=== PATIENT | male | born 1965 | race Caucasian/White ===

== ENCOUNTER 2022-08-04 10:25 | Outpatient (CLI) | payer MEDICARE, SELFPAY ==
--- NOTE | 2022-08-04 | EST_ITS ---
Patient Info Name: Vignesh Boyd Age: 56 years : 1965 Gender: Male Ht: 65 in Wt: 258 lbs BSA: 2.38 m2 Exam Date: 08/04/2022 11:50 AM Exam Location: [facility] Stress Patient Status: Outpatient Admit Date: 08/04/2022 Staff Ordering Physician: Glynn Ruiz MD Attending Provider: Glynn Ruiz MD Exercise Technologist: Aayush Rodney RDCS, RT Exercise Physician: Alton Forbes DO Exam Type: CA stress shilpa w NM Study Info A regadenoson stress test was performed. Summary 1. 1. Negative lexiscan stress test for ischemic ST changes by ECG criteria. 2. 2. Stable hemodynamics throughout the test. 3. 3. Nuclear scan to follow and will be reported separately. Please correlate with it. 4. 4. Patient informed of the above results. Protocol: Lexiscan Stress ECG Details Stage: REST Duration (min): 1 min : 18 sec HR (bpm): 80 SBP (mmHg): 140 DBP (mmHg): 69 Stage: REST Duration (min): 9 min : 40 sec HR (bpm): 78 SBP (mmHg): 140 DBP (mmHg): 69 Stage: STAGE 1 Duration (min): 0 min : 59 sec HR (bpm): 99 SBP (mmHg): 130 DBP (mmHg): 51 Stage: RECOVERY Duration (min): 1 min : 0 sec HR (bpm): 100 SBP (mmHg): 130 DBP (mmHg): 51 Stage: RECOVERY Duration (min): 2 min : 0 sec HR (bpm): 94 SBP (mmHg): 130 DBP (mmHg): 51 Stage: RECOVERY Duration (min): 3 min : 0 sec HR (bpm): 94 SBP (mmHg): 137 DBP (mmHg): 53 Stage: RECOVERY Duration (min): 3 min : 18 sec HR (bpm): 94 SBP (mmHg): 137 DBP (mmHg): 53 Rest HR: 78 bpm Peak HR: 100 bpm Rest Sys BP: 140 mmHg Peak Sys BP: 137 mmHg Max Pred HR: 163 bpm % Max Pred HR: 61 % Target HR: 139 bpm Max RPP: 13,700 bpm*mmHg Termination Reason: Completed protocol Cardiac Symptoms: Shortness of breath Total Time: 1 min : 0 sec Rest Friend BP: 69 mmHg Peak Friend BP: 53 mmHg Total Dose: 0.4 mg Resting ECG Sinus rhythm, delayed precordial R/S transition. Stress ECG No ST changes. Arrhythmias None. Report Signatures
--- NOTE | ~2022-08-04 | XR_ITS ---
EXAMINATION: XR chest 2V Exam Date/Time: 08/04/2022 10:48 CDT HISTORY: Lt sided CHEST PAIN, new onset A fib Comparison: None available. RESULT: Lines, tubes, and devices: None. Lungs and pleura: Diffuse reticulonodular pattern. Linear scar/atelectasis in the lung bases. Cardiomediastinal silhouette: Unremarkable. Other: No acute osseous or upper abdominal finding. IMPRESSION: Pulmonary opacities may represent bronchiolitis, as can be seen with atypical infection, asthma, aspi ration, and small airways disease. Reviewed, dictated and finalized at location K. IMPRESSION: Pulmonary opacities may represent bronchiolitis, as can be seen with atypical i nfection, asthma, aspiration, and small airways disease.
--- NOTE | ~2022-08-04 | NM_ITS ---
EXAMINATION: NM shilpa stress w perfusion DATE: 08/04/2022 13:16 INDICATION: Chest pain TECHNIQUE: Rest images were obtained following intravenous administration of 9 mCi Tc99m tetrofosmin (Myoview). The patient was infused intravenously with Lexiscan (Regadenoson). Then, 26.4 mCi Tc99m te trofosmin (Myoview) was administered intravenously, and stress images were obtained. Data was reconst ructed into short axis and horizontal and vertical long axis SPECT images. Gated SPECT images were al so obtained. COMPARISON: None. FINDINGS: There is no definite reversible or fixed perfusion abnormality to suggest ischemia or infar ction. There is normal left ventricular chamber size, wall motion and ejection fraction. Left ventr icular ejection fraction measures >70%. IMPRESSION: 1. Normal myocardial perfusion at rest and during stress. 2. Left ventricular ejection fraction measuring >70%. Reviewed, dictated and finalized at location B.
== END 2022-08-04 10:26 | disposition home or self-care (01) ==
PROVIDERS: PCP Internal Medicine; Visit Provider Internal Medicine
DX: R07.89 Other chest pain (principal); R91.8 Other nonspecific abnormal finding of lung field
CPT/HCPCS: 71046; 78452; 93017; A9502; J2785

== ENCOUNTER 2023-11-12 08:34 | Outpatient (CLI) | payer MEDICARE, SELFPAY ==
--- NOTE | 2023-11-12 | EST_ITS ---
Patient Info Name: Vignesh Boyd Age: 58 years : 1965 Gender: Male Ht: 65 in Wt: 262 lbs BSA: 2.40 m2 HR: 91 bpm BP: 157 / 80 mmHg Exam Date: 11/12/2023 9:51 AM Exam Location: [facility] Patient Status: Outpatient Admit Date: 11/12/2023 Staff Ordering Physician: Glynn Ruiz MD Attending Provider: Glynn Ruiz MD Exercise Technologist: Xiomara Carr [facility] Exercise Physician: Alton Forbes DO Exam Type: CA stress shilpa w NM Study Info A regadenoson stress test was performed. Summary 1. 1. Negative lexiscan stress test for ischemic ST changes by ECG criteria. 2. 2. Baseline hypertension. 3. 3. Nuclear scan to follow and will be reported separately. Please correlate with it. 4. 4. Patient informed of the above results. Protocol: Lexiscan Stress ECG Details Stage: REST Duration (min): 1 min : 11 sec HR (bpm): 92 SBP (mmHg): 157 DBP (mmHg): 80 Stage: REST Duration (min): 5 min : 56 sec HR (bpm): 93 SBP (mmHg): 157 DBP (mmHg): 80 Stage: STAGE 1 Duration (min): 1 min : 0 sec HR (bpm): 103 SBP (mmHg): 157 DBP (mmHg): 80 Stage: RECOVERY Duration (min): 1 min : 0 sec HR (bpm): 101 SBP (mmHg): 183 DBP (mmHg): 70 Stage: RECOVERY Duration (min): 2 min : 0 sec HR (bpm): 99 SBP (mmHg): 183 DBP (mmHg): 70 Stage: RECOVERY Duration (min): 3 min : 0 sec HR (bpm): 99 SBP (mmHg): 173 DBP (mmHg): 72 Stage: RECOVERY Duration (min): 3 min : 3 sec HR (bpm): 99 SBP (mmHg): 173 DBP (mmHg): 72 Rest HR: 93 bpm Peak HR: 103 bpm Rest Sys BP: 157 mmHg Peak Sys BP: 183 mmHg Max Pred HR: 161 bpm % Max Pred HR: 64 % Target HR: 137 bpm Max RPP: 18,849 bpm*mmHg Termination Reason: Completed protocol Cardiac Symptoms: Shortness of breath Total Time: 1 min : 0 sec Rest Friend BP: 80 mmHg Peak Friend BP: 70 mmHg Total Dose: 0.4 mg Resting ECG Sinus rhythm. Stress ECG No ST changes. Arrhythmias None. Report Signatures
--- NOTE | ~2023-11-12 | NM_ITS ---
EXAMINATION: NM shilpa stress w perfusion DATE: 11/12/2023 12:52 INDICATION: Chest pain. TECHNIQUE: Rest images were obtained following intravenous administration of 9.9 mCi Tc99m tetrofosmi n (Myoview). The patient was infused intravenously with Lexiscan (regadenoson). Then, 32 mCi Tc99m te trofosmin (Myoview) was administered intravenously, and stress images were obtained. Data was reconst ructed into short axis and horizontal and vertical long axis SPECT images. Gated SPECT images were al so obtained. COMPARISON: Myocardial perfusion imaging 05/04/2022 FINDINGS: There is no definite reversible or fixed perfusion abnormality to suggest ischemia or infar ction. There is no segmental wall motion abnormality. Left ventricular ejection fraction measures > 70%. IMPRESSION: 1. No definite ischemia or infarct. 2. Normal left ventricular ejection fraction measuring >70%. Reviewed, dictated and finalized at location E. TECHNICIAN REGISTERED
== END 2023-11-12 08:35 | disposition home or self-care (01) ==
PROVIDERS: PCP Internal Medicine; Visit Provider Internal Medicine
DX: R07.9 Chest pain, unspecified (principal); I10 Essential (primary) hypertension
CPT/HCPCS: 78452; 93017; A9502; J2785

== ENCOUNTER 2025-06-22 08:34 | Outpatient (CLI) | payer MEDICARE, MEDICAID, SELFPAY ==
--- OUTSIDE RECORDS SUMMARY | 2015-11-12 09:04 | XMS_ITS | Continuity of Care Document ---
Author Organization [facility] Address [address] [place] [address] Phone Care Team Providers Care Child Care Centre Manager Name Role Phone Tae Chin MD Unavailable Unavailable Allergies, Adverse Reactions, Alerts Substance Reaction Status Criticality No Known Allergies Active No Inform ation Medications Medication Instructions Dosage Effective Dates (start - stop) Status Comments Neurontin 300 mg capsule take 1 capsule by oral route 3 times every day 300 MG - Active avoid driving or operate machines Flonase 50 mcg/actuation nasal spray,suspension inhale 2 spray by intranasal route every day in each nostril 100 MCG - Active lisinopril 10 mg-hydrochlorothi azide 12.5 mg tablet take 1 tablet by oral route every day 1.00 tablet - Active Procedures Procedure Date OFFICE/OUTPATIENT VISIT, EST OFFICE/OUTPATIENT VISIT, EST OFFICE/OUTPATIENT VISIT, EST OFFICE/OUTPATIENT VISIT, EST PREV VISIT, NEW, AGE 40-64 Advance Directives Directive Yes / No Effective Date File Name No Information Encounters Encounter Description Practice Location Reason(s) For Visit Diagnoses Date Provider Providers Copied on Encounter [facility], [address], [id number], [place] tel:[phone] [facility] Medicine No Information 6 Giuseppe Strong. [address], [place], [place], [id number] , [place]. tel:[phone] OFFICE/OUTPA TIENT VISIT, EST [facility], [address], [place], [place], [address], [place] tel:[phone] [facility] ear pain1 (chief complaint) Otalgia, bilateralSinusitis 5 Giuseppe Strong. [address], [place], [place], [id number] , [place]. [phone] Referring Provider: Tae Chin, [address], [place], [place], [id number]. tel:[phone] OFFICE/OUTPA TIENT VISIT, [facility], [address], [place], [place], [id number], [place] tel:[phone] [facility] Coburn (chief complaint) dehydratio n (chief complaint) anxiety (chief complaint) Dietary surveillance and counselingUnspecifi ed essential hypertensionDehydra tionDisease caused by virusBarrett esophagitis 5 Giuseppe Strong. [address], [place], [place], [id number] , [place]. [phone] Referring Provider: [address], [place], [place], [id number]. tel:[phone] OFFICE/OUTPA TIENT VISIT, [facility], [address], [place], [place], [id number], [place] tel:[phone] [facility] HTN (chief complaint) GERD (chief complaint) neuropathy (chief complaint) back pain (chief complaint) Dietary surveillance and counselingDisturban ce of skin sensationUnspecifie d essential hypertensionBarrett esophagitis 5 Giuseppe Strong. [address], [place], [place], [address] , [place]. tel:[phone] Referring Provider: [address], [place], [place], [id number]. tel:[phone] OFFICE/OUTPA TIENT VISIT, [facility], [address], [place], [place], [address], [place] tel:[phone] [facility] vitamin D (chief complaint) colonsocop y (chief complaint) numbness (chief complaint) Dietary surveillance and counselingDisturban ce of skin sensationSpecial screening for malignant neoplasms, colonUnspecified vitamin d deficiencyHypertens ion, Unspecified 5 Giuseppe Strong. [address], [place], [place], [address] , [place]. tel:[phone] Referring Provider: Tae Chin, [address], [place], [place], [address]. tel:[phone] PREV VISIT, NEW, AGE 40-64 [facility], [address], [place], [place], [address], [place] tel:[phone] [facility] PHysical (chief complaint) Dietary surveillance and counselingRoutine Medical ExamRoutine Medical Exam 5 Giuseppe Strong. [address], [place], [place], [address] , [place]. tel:[phone] Family History Family Member Type Diagnosis Age At Onset Father Problem (finding) COPD Brother Problem (finding) Unknown Disease Mother Problem (finding) Cancer, breast Payers Payer name Insurance type Covered republican ID Authoriza tion(s) No Information Social History Type Description Quantity Date Captured Comments Alcohol Use Details Unknown Caffeine Use Details Unknown Tobacco Use Status No Information Smoking Status No Information Sex Male Chief Complaint And Reason For Visit No Information Plan Of Treatment Date Type Action Status Referral Ordered: Otolaryngology (related to Otalgia, bilateral) ordered Referral Ordered: Referrals: Otolaryngology. Evaluate and treat ordered Referral Ordered: Physical Therapy (related to Disturbance of skin sensation) ordered Referral Referred To: Physical Therapy Ordered: Referrals: Physical Therapy. Evaluate and treat ordered Referral Ordered: COLONOSCOPY AND BIOPSY ordered History Of Present Illness Encounter Date Complaint History Of Prese nt Illness ear pain1 Pt c/o bilateral ear pain, worse in left side for the past two weeks. Pt has sinus congestion and sore throat as well. Pt denies any fever, headahe, coughing Coburn Pt has coburn e merly and he recently had EGD done at [facility]. Pt is on omeprazole. Pt is still seeing Dr. Cedillo. Pt has not done repeat EGD yet. Pt denies any abd pain Pt has some constipation chronically dehydration Pertinent negati ves include diarrhea, fatigue, fever, headache, nausea, polydipsia, pruritus, vomiting and weight loss. Additional information: Pt recently admited to hospital for ? dehydration. Pt had some viral infection? and was vomtiing and having diarrhea. Pt had head cT which was negative in hospital. Pt feels better now.. anxiety The patient does not present with anxious/fearful thoughts or fatigue. The patient denies any headache, nausea, vomiting and weight gain. Additional information: Pt has chronic anxity and depression. Pt sees psychiatrist and is on buspar, trazodone and prozac. Pt doing ok. Pt denies any sucidal thought. HTN Pt takes lisinop ril/HCTZ and his BP is stable. Pt needs refill GERD Associated sympt oms include heartburn. Pertinent negatives include back pain, constipation, diarrhea, dyspnea, fever, hematuria, rash, vomiting and weight loss.Additional information:Pt has GERD and greg Pt is on omeprazole. Pt denies any abd pain. Pt needs repeat colonoscopy due to poor prep. Pt denies any rectal bleeding. neuropathy Pertinent negati ves include fever and headache. Additional information: Pt has left foot numbness chronically. Pt is on neurontin and doing ok. Pt told me he had NCS done at [facility] ??. back pain Additional infor mation: Pt has chronci LBP. Pt has left sciatica. Pt denies any loss of bowel or bladder control. Pt c/o dullache. Pt denies any worsening pain. Instructions Date Instruction Additional Infor akashion Prescribed Diet Educ ation/Lifestyle Education Regarding Diet Related to Dietary Surveillance and Counseling Prescribed Activity and Exercise Education Related to Dietary Surveillance and Counseling Prescribed Activity and Exercise Education Related to Dietary Surveillance and Counseling Prescribed Diet Educ ation/Lifestyle Education Regarding Diet Related to Dietary Surveillance and Counseling Prescribed Diet Educ ation/Lifestyle Education Regarding Diet Related to Dietary Surveillance and Counseling Prescribed Activity and Exercise Education Related to Dietary Surveillance and Counseling Decrease caloric intake Related to Dietary surveillance counseling Physical activity counseling Rel ated to Dietary surveillance counseling Decrease caloric intake Related to Dietary surveillance counseling Physical activity counseling Rel ated to Dietary surveillance counseling Assessments Type Assessment Date No Information
--- NOTE | 2025-06-22 | EST_ITS ---
Patient Info Name: Vignesh Boyd Age: 59 years : 1965 Gender: Male Ht: 65 in Wt: 272 lbs BSA: 2.45 m2 HR: 84 bpm BP: 142 / 73 mmHg Exam Date: 06/22/2025 8:52 AM Patient Status: O Admit Date: 06/22/2025 Exam Type: CA stress shilpa w NM A regadenoson stress test was performed. Staff Referring Physician: Glynn Ruiz MD Attending Provider: Glynn Ruiz MD Exercise Technologist: Xiomara Carr Exercise Physician: Alton Forbes DO Summary 1. 1. Negative lexiscan stress test for ischemic ST changes by ECG criteria. 2. 2. Baseline hypertension. 3. 3. Nuclear scan to follow and will be reported separately. Please correlate with it. 4. 4. Patient informed of the above results. Protocol: Lexiscan Stress ECG Details Stage: REST Duration (min): 1 min : 10 sec HR (bpm): 85 SBP (mmHg): 142 DBP (mmHg): 73 Stage: REST Duration (min): 9 min : 26 sec HR (bpm): 82 SBP (mmHg): 142 DBP (mmHg): 73 Stage: STAGE 1 Duration (min): 1 min : 0 sec HR (bpm): 88 SBP (mmHg): 162 DBP (mmHg): 100 Stage: RECOVERY Duration (min): 1 min : 0 sec HR (bpm): 90 SBP (mmHg): 162 DBP (mmHg): 100 Stage: RECOVERY Duration (min): 2 min : 0 sec HR (bpm): 87 SBP (mmHg): 162 DBP (mmHg): 100 Stage: RECOVERY Duration (min): 3 min : 0 sec HR (bpm): 87 SBP (mmHg): 144 DBP (mmHg): 89 Stage: RECOVERY Duration (min): 4 min : 0 sec HR (bpm): 87 SBP (mmHg): 144 DBP (mmHg): 89 Stage: RECOVERY Duration (min): 4 min : 3 sec HR (bpm): 87 SBP (mmHg): 144 DBP (mmHg): 89 Rest HR: 82 bpm Peak HR: 96 bpm Rest Sys BP: 142 mmHg Peak Sys BP: 162 mmHg Max Pred HR: 160 bpm % Max Pred HR: 60 % Target HR: 136 bpm Max RPP: 15,552 bpm*mmHg Termination Reason: Completed protocol Cardiac Symptoms: None Total Time: 1 min : 0 sec Rest Friend BP: 73 mmHg Peak Friend BP: 100 mmHg Total Dose: 0.4 mg Resting ECG Sinus rhythm. Stress ECG No ST changes. Arrhythmias None. Report Signatures
--- NOTE | ~2025-06-22 | NM_ITS ---
EXAMINATION: NM shilpa stress w perfusion DATE: 06/22/2025 14:25 CDT INDICATION: Dyspnea with exertion TECHNIQUE: Rest images were obtained following intravenous administration of 9.9 mCi Tc99m tetrofosmin (Myoview). The patient was infused intravenously with Lexiscan (regadenoson). Then, 32 mCi Tc99m tetrofosmin (Myoview) was administered intravenously, and stress images were obtained. Data was reconst ructed into short axis and horizontal and vertical long axis SPECT images. Gated SPECT images were also obtained. COMPARISON: None. FINDINGS: There is no definite reversible or fixed perfusion abnormality to suggest ischemia or infarction. There is no segmental wall motion abnormality. Left ventricular ejection fraction measures 72%. IMPRESSION: 1. No definite ischemia or infarct. 2. Normal left ventricular ejection fraction measuring 72%. Reviewed, dictated and finalized at location O.
--- OUTSIDE RECORDS SUMMARY | 2025-06-22 08:43 | XMS_ITS | Clinical Summary ---
Author Organization [facility] Address [address] [place] [address] Phone Care Team Providers Care Overhead Worker Name Role Phone Cheo Cedillo DO Unavailable [phone] Linda Titus PRODUCT SALES REPRESENTATIVE, VENTILATOR SPECIALIST Unavailable [phone] Nadiya Ness PRODUCT SALES REPRESENTATIVE, VENTILATOR SPECIALIST Unavailable Raymond Flynn PRODUCT SALES REPRESENTATIVE, VENTILATOR SPECIALIST Primary Care Provide r Allergies No known active allergies Medications polyethylene glycol (MIRALAX) Powder Take 17 g by mouth 4 times daily. 1 Bottle 0 6 Active Additional Information Patient not taking.Reported on 03/24/2019 docusate sodium (DOCQLACE) 100 MG Capsule Take 2 Caps by mouth nightly. 56 Cap 6 7 Active omeprazole (PRILOSEC) 40 MG CAPSULE DELAYED RELEASE Take 1 Cap by mouth daily. 56 Cap 6 7 Active polyethylene glycol (MIRALAX) Powder Mix the entire bottle with 64 oz of a clear liquid. Use as directed by the office for colonoscopy prep. 2 Bottle 7 Active Additional Information Patient not taking.Reported on 03/24/2019 lisinopril-hydr oCHLOROthiazide (PRINZIDE, ZESTORETIC) 10-12.5 MG Tablet lisinopril 10 mg-hydrochloroth iazide 12.5 mg tablet Active tamsulosin (FLOMAX) 0.4 MG Capsule 0.4 mg every morning. 9 Active QUEtiapine (SEROQUEL) 200 MG Tablet quetiapine 200 mg tablet Active fludrocortisone (FLORINEF) 0.1 MG Tablet 0.1 mg daily. Active naproxen (NAPROSYN) 500 MG Tablet 500 mg 2 times daily (with meals). Active gabapentin (NEURONTIN) 600 MG Tablet Active tiZANidine (ZANAFLEX) 4 MG Tablet 4 mg 2 times daily. Active busPIRone (BUSPAR) 15 MG Tablet buspirone 15 mg tablet Active naltrexone (DEPADE) 50 MG Tablet 50 mg daily. Active traZODone (DESYREL) 50 MG Tablet Take 50 mg by mouth nightly. Active sertraline (ZOLOFT) 100 MG Tablet Active raNITIdine (ZANTAC) 300 MG Tablet 150 mg 2 times daily. Active metoprolol Succinate (TOPROL-XL) 25 MG TABLET SR 24 HR metoprolol succinate ER 25 mg tablet,extended release 24 hr TAKE 1 TABLET(S) EVERY DAY BY ORAL ROUTE. Active furosemide (LASIX) 20 MG Tablet furosemide 20 mg tablet TAKE 1 TABLET(S) EVERY DAY BY ORAL ROUTE. Active Active Problems Problem Noted Date Diagnosed Date Postural dizziness 04/28/2019 Class 3 severe obesity due t o excess calories with serious comorbidity and body mass index (BMI) of 45.0 to 49.9 in adult 03/25/2019 Dysphagia Mcknight's esophagus GERD (gastroesophageal reflux disease) Constipation Family History Medical History Relation Name Comments Heart Attack Father Hypertension Father High Cholesterol Mother Osteoarthritis Mother Migraines Sister Relation Name Status Comments Father Mother Sister Alive Social History Tobacco Use Types Packs/Day Years Used Date Smoking Tobacco: Never Smokeless Tobacco: Never Tobacco Cessation:Counseling Given: No Alcohol Use Standard Drinks/Week Comments No 0 (1 standard drink = 0.6 oz pure alcohol) sober 6 to 7 months (hx alchohol abuse) Sex and Gender Information Value Date Recorded Sex Assigned at Not on file Legal Sex Male 8:56 PM CDT Gender Identity Not on file Sexual Orientation Not on file Occupation Industry Job Start Date Job End Date disabled Not on file Not on file Not on file Last Filed Vital Signs Vital Sign Reading Time Taken Comments Blood Pressure 122/84 04/26/2019 1:13 PM CDT Pulse 83 04/26/2019 1:13 PM CDT Temperature 36.3 C (97.4 F) 04/26/2019 1:13 PM CDT Respiratory Rate 20 04/26/2019 1:13 PM CDT Oxygen Saturation 95% 04/26/2019 1:13 PM CDT Inhaled Oxygen Concentration - - Weight 122 kg (269 lb) 04/26/2019 1:13 PM CDT Height 165.1 cm (5' 5) 04/26/2019 1:13 PM CDT Body Mass Index 44.76 04/26/2019 1:13 PM CDT Plan of Treatment Health Maintenance Due Date Last Done Comments Hepatitis C Virus (HCV) Screening 1965 TdaP Immunization 1965 Cologuard 2009 Immunochemical Fecal Occult Blood 2009 Pneumococcal Immunization (5 0+ years) (1 of 1 - PCV) 2014 Zoster Immunization (1 of 2) 2014 SARS-COV-2 Immunization (3 - season) 2024 02/26/2021, 01/28/2021 Respiratory Syncytial Virus (RSV) Immunization (Adult) (1 - Risk 60-74 years 1-dose series) 2024 Influenza Immunization (#1) 2025 Colonoscopy 04/10/2026 04/10/2016, 03/22/2015 Colorectal Cancer Screening 04/10/2026 Hepatitis B Immunization Aged Out No longer eligible based on patient's age to complete this topic Human Papillomavirus (HPV) Immunization Aged Out No longer eligible b ased on patient's age to complete this topic Meningococcal Immunization (ACWY) Aged Out No longer eligible b ased on patient's age to complete this topic Rotavirus Immunization Aged Out No lo nger eligible based on patient's age to complete this topic Procedures Procedure Name Priority Date/Time Associated Diagnosis Comments COLONOSCOPY Routine 03/22/2015 from Last 3 Months or Most Recently Relevant to Health Maintenance Results * HM COLONOSCOPY (03/22/2015) us Tae Chin PROCEDURE/MINOR SURGICAL ORDERAB LES Final Result from Last 3 Months or Most Recently Relevant to Health Maintenance Insurance MEDICAID [facility] MEDICARE Care Teams Overhead Worker Relationship Specialty Start Date End Date Raymond Flynn APRN, VENTILATOR SPECIALIST [address] [place] [address] PCP - General Advanced Practice Nurse 03/24/19 Cheo Cedillo DO Gastroenterology 04/30/16 Linda Titus, PRODUCT SALES REPRESENTATIVE, VENTILATOR SPECIALIST Nurse Practitioner Advanced Practice Nurse 04/30/16 Nadiya Ness APRN, VENTILATOR SPECIALIST Nurse Practitioner Advanced Practice Nurse 04/30/16
== END 2025-06-22 08:35 | disposition home or self-care (01) ==
PROVIDERS: PCP Internal Medicine; Visit Provider Internal Medicine
DX: R06.09 Other forms of dyspnea (principal)
CPT/HCPCS: 78452; 93017; A9502; J2785